=== PATIENT | male | born 1985 | race Caucasian/White ===

== ENCOUNTER 2018-10-06 05:47 | Emergency (ER) | payer OTHER ==
[2018-10-06 06:11] VITALS: BP 124/77; PULSE 64; RESP 20; TEMP 98.7; O2SAT 99
--- NOTE | 2018-10-06 06:29 | C.PDOC ---
History Of Present Illness 33 year old male presents to the ED for evaluation of upper-mid back pain. Patient states he was doing yoga last night, and thinks he may have overextended himself and pulled something. Patient states pain is worse with movement. He tried applying an icy-hot spray to the area without relief. Patient denies fever, chills, urinary/bowel incontinence, extremity numbness/weakness, direct trauma/injury, or falls. Time Seen by Provider: 10/06/18 06:15 Chief Complaint (Nursing): Back Pain History Per: Patient History/Exam Limitations: no limitations Onset/Duration Of Symptoms: Hrs Current Symptoms Are (Timing): Still Present Quality Of Discomfort: "Pain" Previous Symptoms: Back Pain Associated Symptoms: denies: Incontinence, New Weakness, New Numbness Exacerbating Factor(s): Movement Additional History Per: Patient Past Medical History Reviewed: Historical Data, Nursing Documentation, Vital Signs Vital Signs: Last Vital Signs Temp 98.7 F 10/06/18 05:57 Pulse 64 10/06/18 05:57 Resp 20 10/06/18 05:57 BP 124/77 10/06/18 05:57 Pulse Ox 99 10/06/18 05:57 - Medical History PMH: No Chronic Diseases Surgical History: No Surg Hx Family History: States: Unknown Family Hx - Social History Hx Alcohol Use: No Hx Substance Use: No - Immunization History Hx Tetanus Toxoid Vaccination: No Hx Influenza Vaccination: No Hx Pneumococcal Vaccination: No Review Of Systems Constitutional: Negative for: Fever, Chills Genitourinary: Negative for: Incontinence Musculoskeletal: Positive for: Back Pain Neurological: Negative for: Weakness, Numbness Physical Exam - Physical Exam Appears: Non-toxic, No Acute Distress Skin: Normal Color, Warm, Dry Neck: Normal ROM, Supple Chest: Symmetrical, No Deformity, No Tenderness Back: No CVA Tenderness, No Vertebral Tenderness, Decreased ROM (secondary to pain with movement ), No Paraspinal Tenderness Extremity: Normal ROM (upper and lower extremities ) Neurological/Psych: Oriented x3, Normal Speech, Normal Cognition Gait: Steady ED Course And Treatment O2 Sat by Pulse Oximetry: 99 (on RA) Pulse Ox Interpretation: Normal Progress Note: Flexeril PO and Motrin PO given. On reassessment, patient is resting comfortably, showing no signs of distress and reports an improvement in his symptoms. Patient is ambulatory in the ED with a steady gait and is stable for discharge. He is advised to f/u with his PMD within 1-2 days for further evaluation. Disposition - Disposition Referrals: [facility] [Outside] Disposition: HOME/ ROUTINE Disposition Time: 06:51 Condition: STABLE Additional Instructions: Please follow up in clinic Motrin and flexeril PO Return to ER if worse Prescriptions: Cyclobenzaprine [Cyclobenzaprine HCl] 10 mg PO HS #10 tab Ibuprofen [Motrin] 600 mg PO Q6H #20 tab Instructions: Muscle Strain (DC) Forms: [employer] ([place]) - Clinical Impression Clinical Impression: Back strain - PA / [employer] / Resident Statement MD/DO has reviewed & agrees with the documentation as recorded. - Scribe Statement The provider has reviewed the documentation as recorded by the Scribe (Patricia Feliciano) All medical record entries made by the Scribe were at my direction and personally dictated by me. I have reviewed the chart and agree that the record accurately reflects my personal performance of the history, physical exam, m edical decision making, and the department course for this patient. I have also personally directed, reviewed, and agree with the discharge instructions and disposition.
== END 2018-10-06 07:02 | disposition home or self-care (01) ==
LOC: C.ER 05:47
DX: S39.012A Strain of muscle, fascia and tendon of lower back, initial encounter (principal); X58.XXXA Exposure to other specified factors, initial encounter